=== PATIENT | female | born 1945 | race Asian ===

== ENCOUNTER → 2024-05-04 09:44 | Outpatient (REF) | payer MEDICARE, OTHER, SELFPAY | LOC: HWRAD 09:44 | PROVIDERS: ATTENDING PHYSICIAN Obstetrics & Gynecology; FAMILY PHYSICIAN Nurse Practitioner Primary Care | DX: N95.0 Postmenopausal bleeding (principal) | CPT/HCPCS: 76830; 76856 ==

== ENCOUNTER → 2024-06-04 15:15 | Outpatient (REF) | payer MEDICARE, OTHER, SELFPAY | LOC: RAD 15:15 | PROVIDERS: ATTENDING PHYSICIAN Obstetrics & Gynecology Gynecologic Oncology; FAMILY PHYSICIAN Nurse Practitioner Primary Care | DX: C54.1 Malignant neoplasm of endometrium (principal); C50.811 Malignant neoplasm of overlapping sites of right female breast; E11.9 Type 2 diabetes mellitus without complications; I10 Essential (primary) hypertension | CPT/HCPCS: 71260; 74177; Q9967 ==

== ENCOUNTER → 2024-06-17 12:32 | Outpatient (REF) | payer MEDICARE, OTHER, SELFPAY | LOC: SDSPAT 12:32 | PROVIDERS: ATTENDING PHYSICIAN Obstetrics & Gynecology Gynecologic Oncology; FAMILY PHYSICIAN Nurse Practitioner Primary Care | DX: C54.1 Malignant neoplasm of endometrium (principal) | CPT/HCPCS: 36415; 86850; 86900; 86901 ==

== ENCOUNTER 2024-06-29 06:01 | Day surgery (SDC) | payer MEDICARE, OTHER, SELFPAY ==
[2024-06-17 12:48] VITALS: BMI 18.9
--- NOTE | 2024-06-27 06:29 | W.CON.GYNONC ---
Chief Complaint
-
endometrial cancer
History of Present Illness
This is an 79�year�old G2, P2 white female referred to me by Dr Lopez. Patient apparently has been complaining of vaginal
discharge. There has been blood�tinged discharge for approximately 2 to 3 months. She has used Monistat because she thought it
was possibly a yeast infection
Ultrasound of pelvis performed at [facility] shows uterus 11.8 cm, endometrium is thickened measuring 4 cm in
thickness. Neither ovary was visualized..
Office endometrial biopsy was done which was sent to [facility], shows serous carcinoma. P53 demonstrates diffuse
strong positive staining.
Past medical history significant for hypertension, right breast cancer 2003, hypothyroidism
Possible diabetes past surgical history significant for right mastectomy
patient denies tobacco alcohol drug or marijuana use, lives independently, manages daily living
during the first visit she was diagnosed with UTI and treated accordingly with Bactrim. She was asymptomatic
Patient had a CT chest abdomen and pelvis done at [facility] on May 15,
patient has made an appointment to see senior insight manager international on June 16, saw Dr Rosa and cleared for surgery
Meds:
glimepiride�4�mg�tablet 1�p.o.�twice�a�day�(BID)
Januvia�100�mg�tablet 1�p.o.�q.�day
levothyroxine�25�mcg�tablet 1�p.o.�q.�day
lisinopril�10�mg�tablet 1�p.o.�q.�day
ALL: NKDA
PMH:
RIGHT�Mastectomy�due�to�breast�cancer�stage�1�right�breast
hypertention
diabetes
hypothyroid
Surgical�History Mastectomy.
Medical History
Allergies
Allergies reflect when allergies were last updated in [facility].
No Known Allergies Allergy (Unverified 06/22/24 11:33)
Physical Exam
Physical Exam
Physical�Exam Pelvic�Examination: external�normal�labia,�urethra,�anus.� Vagina:�Normal�mucosa.� Cervix:�normal�appearance,�no�discharge.� Grhxte20�12�weeks�size.�Adnexa:�No�pelvic�mass.� RVE:�no�masses�or�nodularity
General:�Well�developed,�well�nourished�patient.�In�no�acute�distress.
Neck:�No�thyromegaly.�No�cervical�lymphadenopathy.
Lungs:�Clear�to�auscultation.�Good�air�movement�bilaterally.
Cardiac:�Regular�rate.�Regular�rhythm.�No�murmurs�appreciated. Right�Breast:�No�masses�or�dimpling.�No�nipple�discharge.�Breast�is�surgically�absent?�no�masses�or�adenopathy. Left�Breast:�No�masses�or�dimpling.�No�nipple�discharge.
Abdomen:�Abdomen�is�soft.�Non�tender�to�palpation.�Non�distended.
Extremities:�No�edema.
Hematologic/Lymphatic:�No�palpable�lymphadenopathy.
Musculoskeletal:�Normal�range�of�motion.�Strength�and�Tone�are�normal.
Skin:Non�jaundiced.�No�petechia.�No�purpura.
Neurologic:�Speech�is�fluent.�Normal�gait�and�station.�Cranial�nerves�intact.
Results
-
[facility]
[address] [place] [address]
[phone]
Patient Name: BANG MONACO
: 1945
Unit Number: [id number]
Age/Sex: 79/F
Patient
Location: PET
Order Provider: Edmar Murray MD
Exam Service Date: 06/23/24

PET Scan Report
SignedOrder #:[id number]
Exams: PT Pet Wbi W/CT Skull-thigh
PET/CT skull to thigh
IMPRESSION:
[1. Widespread abnormal moderate FDG uptake throughout the uterus corresponding with the patient's primary malignancy.
2. FDG uptake involving several mediastinal lymph nodes, right subpectoral lymph node and right axillary lymph node at least suspicious for FDG avid malignancy, as detailed below.
3. Focus of mild FDG uptake involving an approximate 1.4 cm lesion in the left chest wall/breast at least suspicious for FDG avid malignancy. Suggest mammography/left breast ultrasound.
4. Several foci of FDG uptake involving the abdominal retroperitoneum and some pelvic lymph nodes, as detailed below, suspicious for FDG avid malignancy.
5. Osseous foci of FDG uptake involving the posterior left iliac bone and lesser trochanter of the proximal right femur suspicious for FDG avid malignancy. Small foci of minimal FDG uptake involving the right posterior sixth and eighth ribs which
may be inflammatory/posttraumatic, cannot exclude FDG avid malignancy.
6. Please note, overall evaluation may be limited and findings may be underestimated in light of serum glucose level of 194 mg/dL.
CLINICAL HISTORY: [79] year-old female with Endometrial carcinoma (C54.1) for initial therapy encounter. Patient has a prior history of right breast carcinoma with mastectomy.
COMPARISON: None. Correlation with CT chest, abdomen and pelvis June 04, 2024
PET/CT TECHNIQUE: This PET/CT study was performed at [facility] on [June 23, 2024
59 minutes post-injection of 9.4 mCi F-18 FDG in a left hand vein at 0817 hours axial, coronal and sagittal PET reconstructions with and without attenuation correction were obtained. Images were acquired from [<the base of the skull to mid
thighs>]. . A low-dose non-diagnostic unenhanced CT was obtained for attenuation correction and anatomic correlation only. The serum glucose at the time of the exam was 194 mg/dL.
FINDINGS:
Head and Neck: [There is no soft tissue focus of FDG uptake suspicious for malignancy.]
Chest: [Two foci of FDG uptake are seen involving the left superior mediastinum with maximum SUV of 8.3 and 8.0 respectively. There are at least three foci of FDG uptake within the right superior mediastinum with maximum SUV of 7.7, 7.3 and 7.6
respectively. Two foci of FDG uptake are seen in the right paratracheal mediastinum with maximum SUV of 8.7 and 7.6 respectively. At least one focus of minimal/mild FDG uptake is seen in the prevascular mediastinum with maximum SUV of 4.0. There is
a focus of FDG uptake involving the right axillar corresponding to a lymph node measuring 1.[address] image 71 series 4 with maximum SUV of 3.3 and there is a small focus of mild FDG uptake involving the right subpectoral region with
maximum SUV of 5.5. A focus of FDG uptake is seen in the left breast/anterior chest wall seen corresponding to an approximate 1.4 cm lesion identified on CT image 116 series 4 with maximum SUV of 3.9.
Abdomen and pelvis: [Moderate heterogeneous FDG uptake is seen throughout the uterus likely corresponding with the patient's primary malignancy, maximum SUV 11.8. There is a focus of FDG uptake appearing to correspond to an aortocaval
retroperitoneal lymph node with maximum SUV of 6.2, right retroperitoneal lymph node with maximum SUV of 6.2 and at least two small left retroperitoneal lymph nodes with maximum SUV of 4.3 and 7.1 respectively. FDG uptake is seen corresponding with
an apparent left common iliac chain lymph node with maximum SUV of 5.9 and also most likely involving a small right common iliac chain lymph node with maximum SUV of 3.5. In addition, there is FDG uptake seen involving an apparent right external
iliac chain node with maximum SUV of 7.3.
Musculoskeletal: [There is a small focus of mild FDG uptake involving the right posterior sixth rib with maximum SUV of 2.9 and right posterior eighth rib with maximum SUV of 2.5. A focus of FDG uptake is seen involving the left posterior iliac bone
with maximum SUV of 5.3 and region of the lesser trochanter of the proximal right femur with maximum SUV of 6.5.]
Electronically signed by Edmar Clarke MD, 06/23/2024 12:01 PM
Dictated By: Edmar Clarke MD.
Dictated Date & Time: 06/23/24 1132
Impression / Plan
-
I�discussed�with�her�diagnosis�of�endometrial�cancer,�presentation�and�management.� We�discussed�the�specific�serous�carcinoma�histology�and�its�implication�and�high�risk.�
#1�I�have�reviewed�her�labs�and�note�elevated�CA�125�level�indicative�of�large�tumor�or�increased�risk�of�extrauterine�disease #2�Hgb�is�appropriate�given�history�of�bleeding,�
#3�Cardiology�visit�is�noted for pre�op�clearance, seen by Dr Rosa.� #4)�I�do�have�some�concern�about�the�findings�on�the�CT�scan�possibly�indicative�of�some�scattered�pulmonary�nodules�which�may
be�metastatic�disease�as�well�as�mediastinal�lymphadenopathy�which�is�borderline�in�size.�
initally I planned for surgery includingrobotic�assisted�total�laparoscopic�hysterectomy,�bilateral�salpingo�oophorectomy,�staging�including�injection�of cervix,�sentinel�lymph�node�excision,�omentectomy�washings�peritoneal�biopsies.�
over�the�course�of�last�couple�week,�and�in�preparation�for�her�surgical�treatment,�imaging�studies�were�obtained. Unfortunately�her�PET�CT�shows�extensive�adenopathy�in�retroperitoneum�and�hilar/mediastinal�region�and�also�involving
subpectoral�and�axillary�regions,�in�addition�there�is�bone�metastasis�definitely�right�femur�but�also�potentially�several�ribs. Her�abnormal�bleeding�is�not�severe�and�she�is�not�anemic.
surgery�to�remove�the�uterus�is�feasible�but�probably�will�not�improve�her�life�expectancy.�Indeed�given�her�advanced�disease�it could�result�in�additional�problems�such�as�post�op�DVT/Pe�complications�given�burden�of�disease.�
My�recommendation�is�is�to�treat�her�as�follows:
1.�Proceed�with�D&C�instead�of�hysterectomy,�get�more�tissue�for�diagnostic�purposes�and�obtain�NGS�information.
Next steps will be then
a.�place�orders�for�IR�port�placement b.�arrange�meeting�with�Medical�oncology,�on�schedule�to�see�Dr�Efren.,�please�note�she�had�prior�history�of�TNBc�in�remote�past
c.�start�systemic�therapy�with�Taxol,�carbo�and�Dostarlimab�(based�on�results�of�DEBBI�trial�published�in�NEJM�2023)for�stage�IV endometrial�cancer
5.�reevaluate�with�imaging�after�3�-6�cycles�and�reassess�for�possible�hysterectomy�for�palliative�purposes. I�spoke�with�daughter�Enma�and�patient�extensively,�e
[2024-06-29] VITALS (9 sets, daily range): BP systolic 98–135; BP diastolic 53–83; BMI 18.9
[2024-06-29] MEDS: NEURONTIN 300 MG PO (06:34)
[2024-06-29] MEDS: TYLENOL 1000 MG PO (06:34)
[2024-06-29] MEDS: CELEBREX 200 MG PO (06:34)
[2024-06-29] MEDS: HEPARIN 5000 UNITS SC (06:35)
[2024-06-29 06:45] LABS: Glucose - Point of Care 157 mg/dl (70-99)
[2024-06-29] MEDS: NORMOSOL-R/PLASMALYTE-A 1000 IV (06:48)
[2024-06-29] MEDS: EMEND 40 MG PO (07:08)
[2024-06-29 07:54] LABS: Glucose - Point of Care 182 mg/dl (70-99)
--- NOTE | 2024-06-29 08:12 | OR.RPT ---
Operative Report
Operative Report
Date of procedure: 06/29/2024
Pre op diagnosis: Endometrial cancer
Postop diagnosis: Same
Procedure: Exam under anesthesia, fractional dilation and curettage
Surgeon: Edmar Murray
Assist: Gavin Humphreys PA-C
Anesthesia: General LMA intubation
Estimated blood loss: 5 cc
Complications: None
Specimen: ECC, endometrial curetting
Indication for the surgery: This is an 79-year-old with recent history of postmenopausal bleeding, she had an endometrial biopsy by her receiver dispatcher revealing adenocarcinoma suspicious of serous histology. She was seen and evaluated and workup
including CT scan and PET CT scan has revealed extensive metastatic disease including pelvic and aortic lymphadenopathy as well as mediastinal axillary and supraclavicular lymphadenopathy and bone metastasis and femur. While she was initially
scheduled to undergo hysterectomy today we contacted the patient a few days ago and canceled the plan in favor of performing a D&C to have a better sample of the primary tumor for next generation sequencing and molecular profiling and proceeding
with systemic therapy including chemotherapy and immune checkpoint inhibition.
Upon arrival to the operating room she was placed in supine position, general anesthesia was administered she was intubated without any difficulty. She was carefully positioned in lithotomy using yellowfin stirrups. She was prepped and draped in
the vagina upper thighs and perineum and draped. Timeout procedure was carried out she received Ancef 2 g IV. I went ahead and used the Dinero retractor posteriorly in the vagina and identified the cervix which is already dilated and there is some
necrotic tissue within it. Next a paracervical block was performed using 10 cc 1% lidocaine injected at 5 and 7:00 locations. The tissue within the cervical canal as well as curetting of the endocervical canal was obtained and submitted to
pathology. Next uterus was sounded and the cavity sounded to 11 cm, the cervical canal was practically already dilated, sharp curettage of the endometrial cavity was performed and abundant malignant tissue was extracted and submitted to pathology
for evaluation sharp cry was obtained from all uterine surfaces to the best of my ability I extracted as much of the tumor as possible.
Bimanual and rectovaginal examination reveals bilateral parametria to be within normal limits the uterus is enlarged at 12 weeks, mid is mobile. Rectovaginal examination does not show any masses or nodularity in the posterior cul-de-sac. The
vagina was examined and there is no evidence of disease. A 5 mm small polyp benign appearing is present just at the level of introitus on the left anterior side.
The procedure was completed, patient was extubated she returned back to recovery room stable awake and extubated condition. Counts of laps instruments and needle was correct x 2. I was present and scrubbed for entire procedure as dictated above
Disposition: To PACU stable extubated
--- NOTE | 2024-06-29 08:16 | SUR.PHASEI ---
glucose results called to Dr Bach - no treatment at this time. Patient sleeping, awakens to repeated name, no complaints. vss.
== END 2024-06-29 09:35 | disposition home or self-care (01) ==
LOC: SDS 06:01
PROVIDERS: ATTENDING PHYSICIAN Obstetrics & Gynecology Gynecologic Oncology; FAMILY PHYSICIAN Nurse Practitioner Primary Care
DX: C54.1 Malignant neoplasm of endometrium (principal); C79.51 Secondary malignant neoplasm of bone; N85.2 Hypertrophy of uterus; N95.0 Postmenopausal bleeding
CPT/HCPCS: 58120; 88305; 82962; 86900; 86901; 88341; 88342; 88360

== ENCOUNTER → 2024-07-02 08:18 | Outpatient (REF) | payer MEDICARE, OTHER, SELFPAY ==
[2024-07-02 08:50] VITALS: BP 149/65; BP_SYST 96
[2024-07-02] MEDS: ANCEF 10 IV (09:04)
[2024-07-02 10:32] VITALS: BP 149/87
== END ==
LOC: RADI 08:18
PROVIDERS: ATTENDING PHYSICIAN Obstetrics & Gynecology Gynecologic Oncology; FAMILY PHYSICIAN Nurse Practitioner Primary Care
DX: C54.1 Malignant neoplasm of endometrium (principal)
CPT/HCPCS: 36561; 76937; 77001; 99152; 99153; C1788

== ENCOUNTER → 2024-07-05 14:00 | Outpatient (REF) | payer MEDICARE, OTHER, SELFPAY ==
[2024-07-05 11:54] LABS: % Basophils 0.3 % (0-2); % Eosinophils 0.4 % (0-6); % Immature Granulocytes 0.7 % (0-0.5); % Lymphocytes 19.1 % (20.5-51.1); % Monocytes 11.5 % (1.7-9.3); Absolute Immature Granulocytes 0.1 10^3/uL (0-0.05); Absolute Lymphocytes 1.3 10^3/uL (1.2-3.4); Absolute Monocytes 0.8 10^3/uL (0.1-0.6); Absolute Neutrophils 4.8 10^3/uL (1.4-6.5); Hematocrit 35.4 % (37.0-47.0); Hemoglobin 11.1 g/dL (12.0-16.0); Mean Corp Hgb Conc. 31.4 g/dL (33.0-37.0); Mean Corpuscular Hgb 26.7 pg (27.0-31.0); Mean Corpuscular Volume 85.3 fL (81.0-99.0); Mean Platelet Volume 8.1 fL (7.4-10.4); Platelet Count 300 10^3/uL (130-400); Red Blood Cell Count 4.15 10^6/uL (4.20-5.40); Red Cell Dist. Width 14.2 % (11.5-14.5)
[2024-07-05 12:15] LABS: ALT (SGPT) 12 U/L (0-35); AST (SGOT) 17 U/L (14-36); Albumin 3.5 g/dl (3.5-5.0); Alkaline Phosphatase 67 U/L (38-126); Blood Urea Nitrogen 12 mg/dl (7-17); Calcium 8.7 mg/dl (8.4-10.2); Carbon Dioxide 28 mmol/L (22-30); Chloride 98 mmol/L (98-107); Glucose 259 mg/dl (70-99); Potassium 3.8 mmol/L (3.5-5.1); Sodium 133 mmol/L (135-145); Total Bilirubin 0.4 mg/dl (0.2-1.3); Total Protein 6.8 g/dl (6.3-8.2); eGFR > 60.00
[2024-07-05 12:43] LABS: TSH Reflex To Free T4 1.09 uIU/ml (0.47-4.68)
== END ==
LOC: OIDL 14:00
PROVIDERS: ATTENDING PHYSICIAN Internal Medicine Hematology & Oncology
DX: C54.1 Malignant neoplasm of endometrium (principal); C50.811 Malignant neoplasm of overlapping sites of right female breast; E11.9 Type 2 diabetes mellitus without complications; I10 Essential (primary) hypertension; Z01.812 Encounter for preprocedural laboratory examination
CPT/HCPCS: 80053; 84443; 85025

== ENCOUNTER → 2024-07-06 10:02 | Outpatient (REF) | payer MEDICARE, OTHER, SELFPAY | LOC: WDC 10:02 | PROVIDERS: ATTENDING PHYSICIAN Internal Medicine Hematology & Oncology; FAMILY PHYSICIAN Nurse Practitioner Primary Care | DX: R92.8 Other abnormal and inconclusive findings on diagnostic imaging of breast (principal) | CPT/HCPCS: 76642; 77061; 77065 ==

== ENCOUNTER → 2024-07-09 15:27 | Outpatient (REF) | payer MEDICARE, OTHER, SELFPAY ==
[2024-07-09 16:01] LABS: Urine Albumin 2+ (Neg - Trace); Urine Bilirubin Negative (Negative); Urine Character Clear (Clear); Urine Glucose 4+ (Negative); Urine Ketone 1+ (Negative); Urine Leukocyte 3+ (Negative); Urine Nitrite Negative (Negative); Urine Occult Blood 4+ (Negative); Urine Urobilinogen Negative (Neg - 1+)
[2024-07-09 16:03] LABS: Urine Color Pink
[2024-07-09 16:11] LABS: Urine Squamous Cell 0-2 /LPF (Few)
[2024-07-09 16:12] LABS: Urine Bacteria Moderate (Negative); Urine Red Blood Cell 26-30 /HPF (0-2); Urine White Cell 70-80 /HPF (0-5)
== END ==
LOC: OIDL 15:27
PROVIDERS: ATTENDING PHYSICIAN Internal Medicine Hematology & Oncology
DX: C54.1 Malignant neoplasm of endometrium (principal)
CPT/HCPCS: 81003; 81015

== ENCOUNTER → 2024-07-16 07:41 | Outpatient (REF) | payer MEDICARE, OTHER, SELFPAY ==
--- NOTE | 2024-07-16 13:51 | OID.BR.INTR ---
[facility] Breast Navigator - Initial
- -
Date of Contact: 07/16/24
Met with patient. Will follow up as needed per protocol.
== END ==
LOC: WDC 07:41
PROVIDERS: ATTENDING PHYSICIAN Internal Medicine Hematology & Oncology
DX: N63.42 Unspecified lump in left breast, subareolar (principal)
CPT/HCPCS: 88305; 19083; A4648

== ENCOUNTER → 2024-10-18 13:56 | Outpatient (REF) | payer MEDICARE, OTHER, SELFPAY | LOC: RAD 13:56 | PROVIDERS: ATTENDING PHYSICIAN Nurse Practitioner Adult Health; FAMILY PHYSICIAN Nurse Practitioner Primary Care | DX: I10 Essential (primary) hypertension (principal); C54.1 Malignant neoplasm of endometrium; C50.811 Malignant neoplasm of overlapping sites of right female breast; E11.9 Type 2 diabetes mellitus without complications; Z01.812 Encounter for preprocedural laboratory examination; R39.9 Unspecified symptoms and signs involving the genitourinary system | CPT/HCPCS: 74019 ==